=== PATIENT | female | born 1960 | race Caucasian/White ===

== ENCOUNTER 2020-03-12 12:47 | Outpatient (CLI) | payer OTHER, MEDICAID ==
[~2020-03-12 12:47] MED LIST: LIDOCAINE-MPF 1%, 5ML ONE
[2020-03-12] MEDS ORDERED: LIDOCAINE-MPF 1%, 5ML ONE (13:17)
== END 2020-03-12 23:59 | disposition home or self-care (01) ==
LOC: RAD 12:47
PROVIDERS: ATTEND Nurse Practitioner Family
DX: E04.1 Nontoxic single thyroid nodule (principal); Z72.89 Other problems related to lifestyle
CPT/HCPCS: 10005; 88173